=== PATIENT | female | born 1980 | race African-American/Black ===

== ENCOUNTER 2019-04-09 13:24 | Emergency (ER) | payer MEDICAID, OTHER ==
[~2019-04-09] VITALS: Ht 162.6 cm; Wt 60.0 kg
[2019-04-09 14:45] VITALS: BP 152/71
[2019-04-09] MEDS ORDERED: SODIUM CHLORIDE 0.9% 500 ML IV ONE (15:16)
[2019-04-09 16:06] LABS: BASOPHILS % 0.5 % (0.0-2.0); EOSINOPHILS % 0.4 % (0.0-5.0); HEMATOCRIT. 37.6 % (36.0-48.0); HEMOGLOBIN. 12.2 g/dL (12.0-16.0); LYMPHOCYTES % 16.5 % (20.0-50.0); MEAN CORPUSCULAR HEMOGLOBIN 30.8 pg (28.0-32.0); MEAN CORPUSCULAR VOLUME 94.6 fL (81.0-99.0); MEAN PLATELET VOLUME 10.4 fl (7.4-10.4); MONOCYTES % 7.4 % (2.0-8.0); NEUTROPHILS % 75.2 % (40.0-76.0); PLATELET 164 x1000/uL (130-400); RED BLOOD CELL COUNT 3.98 mill/uL (4.2-5.4); RED CELL DISTRIBUTION WIDTH 15.1 % (11.6-14.6)
[2019-04-09 16:12] LABS: HCG SCREEN POSITIVE
== END 2019-04-09 19:02 | disposition left against medical advice (07) ==
LOC: ER 13:24
DX: R55 Syncope and collapse (principal); O26.899 Other specified pregnancy related conditions, unspecified trimester; Z3A.00 Weeks of gestation of pregnancy not specified
CPT/HCPCS: 36415; 84703; 85025; 93005; 96360; 99284; J7040